=== PATIENT | male | born 1960 | race Caucasian/White ===

== ENCOUNTER 2016-12-01 14:45 | Inpatient (IN) | payer OTHER ==
[~2016-12-01] VITALS: Ht 172.7 cm; Wt 97.9 kg
[~2016-12-01 14:45] MED LIST: ABILIFY10 MG PO; ACULAR 0.5100 DROP/5 LEFT EYE; ADVAIR 250/501 DISK IH; AMBIEN10 MG PO; AMOXICILLIN500 MG PO; ASPIR 8181 M1 PO; BENZTROPINE MESY2 MG PO; CELEXA20 MG PO; CLOPIDOGREL75 MG PO; COMBIVENT RESPIM4 GM IH; FUROSEMIDE40 MG PO; ISOSORBIDE MONO30 MG PO; ISOSORBIDE MONO60 MG PO; MOTRIN800 MG PO; NITROSTAT0.4 MG SL; OXCARBAZEPINE150 MG PO; PROAIR HFA8.5 GM IH; SIMVASTATIN20 MG PO; SIMVASTATIN40 MG PO; VENTOLIN HFA18 GM IH; VIGAMOX 0.60 DROP/3 LEFT EYE; WELLBUTRIN XL300 MG PO; XANAX0.25 MG PO; ZOCOR40 MG PO; ZOLPIDEM TARTRA10 MG PO
[2016-12-01 15:51] LABS: ADD MIUA? YES; BILIRUBIN NEGATIVE; BLOOD NEGATIVE; COLOR YELLOW ((YELLOW)); GLUCOSE (STRIP) NEGATIVE; KETONES 5; LEUKOCYTES TRACE; NITRITE NEGATIVE; PROTEIN (STRIP) NEGATIVE; SPECIFIC GRAVITY 1.018 (1.000-1.030); UROBILINOGEN 0.2 MG/DL (0.2-1.0)
[2016-12-01 15:54] LABS: HEMATOCRIT 48.3 % (38.0-50.0); MCH 29.8 PG (29.0-34.0); MCV 87.7 FL (86-99); MEAN PLAT.VOLUME 8.8 uM^3 (9.0-12.4); PLATELET COUNT 276 K/uL (156-360); RBC DIS.WIDTH-SD 42.2 % (39-53); RED BLOOD COUNT 5.51 M/uL (4.00-5.50); WHITE BLOOD COUNT 7.8 K/uL (4.1-10.2)
[2016-12-01 15:54] LABS: BACTERIA NONE SEEN /HPF; EPITHELIAL CELLS NONE SEEN /HPF; MUCUS TRACE /LPF; RED BLOOD CELLS 0-5 /HPF (0-5); UCUL ADDED? NO; WHITE BLOOD CELLS 0-5 /HPF (0-5)
[2016-12-01 16:02] LABS: CHLORIDE 103 mEq/L (99-109); POTASSIUM 3.7 mEq/L (3.7-5.4); SODIUM 137 mEq/L (136-147)
[2016-12-01 16:04] LABS: GLUCOSE 86 mg/dL (70-99)
[2016-12-01 16:05] LABS: ANION GAP 9 MEQ/L (2-14)
[2016-12-01 16:06] LABS: TOTAL BILIRUBIN 0.4 mg/dL (0.0-1.0)
[2016-12-01 16:07] LABS: ALKALINE PHOSPHATASE 92 IU/L (3-129); SERUM ETHYL ALCOHOL < 10 mg/dL
[2016-12-01 16:08] LABS: GFR ESTIMATE (CALCULATED) > 59 mL/min/
[2016-12-01 16:09] LABS: UREA NITROGEN (BUN) 12 mg/dL (9-23)
[2016-12-01 16:15] LABS: AMPHETAMINE NEGATIVE (500 ng/mL); BARBITURATES NEGATIVE (200 ng/mL); BENZODIAZEPINES NEGATIVE (150 ng/mL); COCAINE NEGATIVE (150 ng/mL); INTERNAL CONTROLS VALID? YES; METHADONE NEGATIVE (200 ng/mL); METHAMPHETAMINE NEGATIVE (500 ng/mL); OPIATES (MORPHINE) NEGATIVE (100 ng/mL); OXYCODONE NEGATIVE (100 ng/mL); PHENCYCLIDINE NEGATIVE (25 ng/mL); PROPOXYPHENE NEGATIVE (300 ng/mL); THC CANNABINOIDS NEGATIVE (50 ng/mL); TRICYCLIC ANTIDEPRESSANTS NEGATIVE (300 ng/mL)
[2016-12-01] MEDS ORDERED: ABILIFY20 MG PO (18:51)
[2016-12-01] MEDS ORDERED: BENZTROPINE MESY1 MG PO (18:52)
[2016-12-01] MEDS ORDERED: OXCARBAZEPINE300 MG PO (18:55)
[2016-12-01] MEDS ORDERED: ZOLPIDEM TARTRA10 MG PO (18:56)
[2016-12-01] MEDS ORDERED: LIPITOR40 MG PO (18:56)
[2016-12-01] MEDS ORDERED: ERGOCALCIF50000 UNIT PO (18:56)
[2016-12-01] MEDS ORDERED: ISOSORBIDE MONO60 MG PO (18:57)
[2016-12-01] MEDS ORDERED: LOPRESSOR25 MG PO (18:57)
[2016-12-01] MEDS ORDERED: SYMBICORT60 INHALAT IH (18:58)
[2016-12-01 20:13] VITALS: BP 129/58
[2016-12-01 21:28] VITALS: BP 129/58
[2016-12-02 07:53] VITALS: BP 113/65
[2016-12-02 15:35] VITALS: BP 94/50
[2016-12-02 20:58] VITALS: BP 111/67
[2016-12-02 23:43] VITALS: BP 107/65
[2016-12-03 07:26] VITALS: BP 137/84
[2016-12-03 16:19] VITALS: BP 109/58
[2016-12-04 07:30] VITALS: BP 132/80
[2016-12-04] MEDS ORDERED: DIVALPROEX SOD500 M1 PO (13:29)
[2016-12-04] MEDS ORDERED: SPIRIVA RESPIMAT4 GM IH (13:29)
== END 2016-12-04 14:40 | disposition home or self-care (01) | DRG 885 ==
LOC: EME 14:45 → 1WEST 18:11 → EDOF 18:11 → 1WEST 20:03
PROVIDERS: Emergency Medicine
DX: F33.2 Major depressive disorder, recurrent severe without psychotic features (principal); R45.851 Suicidal ideations; I10 Essential (primary) hypertension; E78.5 Hyperlipidemia, unspecified; I25.2 Old myocardial infarction; Z59.0 Homelessness; F60.9 Personality disorder, unspecified; Z87.891 Personal history of nicotine dependence
CPT/HCPCS: 71020; 80053; 81003; 85027; 90839; 94640; 94640 76; 94660; 97150 GO; 97166 GO; 99202; 99281; 99285; G0480

== ENCOUNTER 2017-05-19 10:33 | Observation (INO) | payer OTHER ==
[~2017-05-19] VITALS: Ht 172.7 cm; Wt 103.1 kg
[~2017-05-19 10:33] MED LIST changes: +ABILIFY20 MG PO; +BENZTROPINE MESY1 MG PO; +DIVALPROEX SOD500 M1 PO; +ERGOCALCIF50000 UNIT PO; +LIPITOR40 MG PO; +LOPRESSOR25 MG PO; +OXCARBAZEPINE600 MG PO; +SPIRIVA RESPIMAT4 GM IH; +SYMBICORT60 INHALAT IH
[2017-05-19 12:31] LABS: BASOPHIL COUNT 0.1 K/uL (0-0.1); EOSINOPHIL (%) 1.2 % (0-5); EOSINOPHIL COUNT 0.1 K/uL (0-0.3); HEMATOCRIT 48.1 % (38.0-50.0); IMMATURE GRANULOCYTE (%) 0.2 % (0.0-0.7); LYMPHOCYTE COUNT 2.1 K/uL (1.0-2.8); MCHC 33.9 G/DL (30.0-36.0); MCV 88.6 FL (86-99); MONOCYTE (%) 9.9 % (3-12); MONOCYTE COUNT 0.6 K/uL (0-0.8); NEUTROPHIL (%) 51.5 % (45-76); PLATELET COUNT 241 K/uL (156-360); RBC DIS.WIDTH-CV 12.8 % (11.8-14.6); RBC DIS.WIDTH-SD 41.8 % (39-53); RED BLOOD COUNT 5.43 M/uL (4.00-5.50); WHITE BLOOD COUNT 5.9 K/uL (4.1-10.2)
[2017-05-19 12:44] LABS: CHLORIDE 103 mEq/L (99-109); POTASSIUM 3.9 mEq/L (3.7-5.4); SODIUM 137 mEq/L (136-147)
[2017-05-19 12:46] LABS: GLUCOSE 87 mg/dL (70-99)
[2017-05-19 12:47] LABS: ANION GAP 9 MEQ/L (2-14)
[2017-05-19 12:50] LABS: GFR ESTIMATE (CALCULATED) > 59 mL/min/ (58.99-99999)
[2017-05-19 12:51] LABS: UREA NITROGEN (BUN) 12 mg/dL (9-23)
[2017-05-19 12:54] LABS: TROP-I INTERPRETATION NEGATIVE; TROPONIN-I < 0.01 ng/mL (0.0-0.30)
[2017-05-19 13:53] LABS: PROTHROMBIN TIME 11.8 SEC (10.2-12.9)
[2017-05-19 13:56] LABS: PTT 27.9 SEC (25-37)
[2017-05-19] MEDS ORDERED: NITROGLYCERIN0.4 MG SL (14:09)
[2017-05-19] MEDS ORDERED: INCRUSE ELLI62.5 MCG IH (14:09)
[2017-05-19] MEDS ORDERED: BACTRIM,SEPT1 TABLET PO (14:09)
[2017-05-19] MEDS ORDERED: EZETIMIBE10 MG PO (14:10)
[2017-05-19] MEDS ORDERED: BENZTROPINE MESY1 MG PO (14:10)
[2017-05-19 16:34] VITALS: BP 108/70
== END 2017-05-19 18:08 | disposition left against medical advice (07) ==
LOC: EME 10:33 → EDOF 13:00 → ENRESERV 13:03 → 5WEST 15:02 → EDOF 15:03 → 5WEST 15:10
PROVIDERS: Emergency Medicine; Internal Medicine
DX: R07.9 Chest pain, unspecified (principal); I25.10 Atherosclerotic heart disease of native coronary artery without angina pectoris; Z95.5 Presence of coronary angioplasty implant and graft; J44.9 Chronic obstructive pulmonary disease, unspecified; E78.5 Hyperlipidemia, unspecified; I25.2 Old myocardial infarction; F10.11 Alcohol abuse, in remission; Z91.5 Personal history of self-harm; Z72.0 Tobacco use; R42 Dizziness and giddiness; M79.601 Pain in right arm; Z53.29 Procedure and treatment not carried out because of patient's decision for other reasons
CPT/HCPCS: 71010; 80048; 80306 90; 84484; 85025; 85610; 85730; 93005; 94640; 99202; 99281; 99285; G0378

== ENCOUNTER 2017-08-19 07:00 | Emergency (ER) | payer OTHER ==
[~2017-08-19] VITALS: Ht 172.7 cm; Wt 109.0 kg
[~2017-08-19 07:00] MED LIST changes: +BACTRIM,SEPT1 TABLET PO; +EZETIMIBE10 MG PO; +INCRUSE ELLI62.5 MCG IH; +NITROGLYCERIN0.4 MG SL
[2017-08-19 08:03] LABS: HEMATOCRIT 45.8 % (38.0-50.0); HEMOGLOBIN 15.3 G/DL (12.5-16.6); MCH 29.8 PG (29.0-34.0); MCHC 33.4 G/DL (30.0-36.0); MCV 89.3 FL (86-99); PLATELET COUNT 252 K/uL (156-360); RBC DIS.WIDTH-CV 12.7 % (11.8-14.6); RBC DIS.WIDTH-SD 41.3 % (39-53); RED BLOOD COUNT 5.13 M/uL (4.00-5.50); WHITE BLOOD COUNT 8.4 K/uL (4.1-10.2)
[2017-08-19] MEDS ORDERED: VIBRAMYCIN100 MG PO (08:37)
[2017-08-19 08:52] LABS: CHLORIDE 107 MEQ/L (99-109); CREATININE 0.7 MG/DL (0.6-1.3); GFR ESTIMATE (CALCULATED) > 59 mL/min/ (58.99-99999); GLUCOSE 111 mg/dL (70-99); SODIUM 140 MEQ/L (136-147); UREA NITROGEN (BUN) 15 mg/dL (9-23)
[2017-08-19 09:39] VITALS: BP 141/78
== END 2017-08-19 09:39 | disposition home or self-care (01) ==
LOC: EME 07:00
PROVIDERS: Nurse Practitioner Family
DX: L02.425 Furuncle of right lower limb (principal); L02.426 Furuncle of left lower limb; J44.9 Chronic obstructive pulmonary disease, unspecified; G47.00 Insomnia, unspecified; I10 Essential (primary) hypertension; E78.5 Hyperlipidemia, unspecified; I25.2 Old myocardial infarction; Z95.5 Presence of coronary angioplasty implant and graft; Z79.82 Long term (current) use of aspirin; Z87.891 Personal history of nicotine dependence
CPT/HCPCS: 80048; 85027; 99281; 99284

== ENCOUNTER → 2017-09-21 | Outpatient (CLI) | payer OTHER ==
[~2017-09-21] MED LIST changes: +VIBRAMYCIN100 MG PO
== END | disposition home or self-care (01) ==
LOC: RES 08:36
DX: Z02.71 Encounter for disability determination (principal)
CPT/HCPCS: 94010; 94729; 94760